=== PATIENT | female | born 1985 | race Caucasian/White ===

== ENCOUNTER 2018-09-23 06:04 | Emergency (ER) | payer OTHER ==
[~2018-09-23] VITALS: Ht 177.8 cm; Wt 64.9 kg
--- NOTE | 2018-09-23 07:17 | NUR ---
Dr Gooden at the bedside for MSE.
[2018-09-23 07:30] VITALS: BP 106/75
--- NOTE | 2018-09-23 07:30 | NUR ---
Patient discharged to home in stable conditon. Written and verbal after care instructions given. Patient verbalizes understanding of instructions.
== END 2018-09-23 07:31 | disposition home or self-care (01) ==
LOC: ER 06:13
DX: S00.262A Insect bite (nonvenomous) of left eyelid and periocular area, initial encounter (principal); L08.9 Local infection of the skin and subcutaneous tissue, unspecified; F17.200 Nicotine dependence, unspecified, uncomplicated; W57.XXXA Bitten or stung by nonvenomous insect and other nonvenomous arthropods, initial encounter; Y93.89 Activity, other specified; Y92.89 Other specified places as the place of occurrence of the external cause; Y99.8 Other external cause status
CPT/HCPCS: A4663